=== PATIENT | male | born 1955 | race Two or more races ===

== ENCOUNTER 2019-05-29 02:47 | Emergency (ER) | payer OTHER ==
[~2019-05-29] VITALS: Ht 167.6 cm; Wt 74.8 kg
[~2019-05-29 02:47] MED LIST: ASPIR 8181 MG PO; HEP-FORTE1 CAP PO; LOVAZA1 G1 PO; NIASPAN500 MG PO; OSCAL ULTRA 6001 TA1 PO; PRA20 PO
[2019-05-29 02:57] VITALS: Ht 167.6 cm; Wt 74.8 kg
[2019-05-29 03:31] LABS: BASOPHIL % 0.4 % (0-2); PLATELET COUNT 243 x10^3mcL (130-400); RED CELL DISTRIBUTION WIDTH 13.2 % (11.5-14.5)
[2019-05-29 03:48] LABS: CALCIUM 8.7 mg/dL (8.5-10.1); CARBON DIOXIDE 27.3 mmol/L (21-32); CHLORIDE SERUM 100 mmol/L (98-107); CREATININE SERUM 1.1 mg/dL (0.7-1.3); GFR1 > 60 mL/min; GLUCOSE SERUM 120 mg/dL (74-106); POTASSIUM SERUM 4.1 mmol/L (3.5-5.1); SODIUM SERUM 136 mmol/L (136-145)
[2019-05-29 03:53] LABS: ALBUMIN 3.9 g/dL (3.4-5.0); ALKALINE PHOSPHATASE 125 U/L (46-116); ALT/SGPT 126 U/L (16-63); AST/SGOT 59 U/L (15-37); BILIRUBIN TOTAL 0.38 mg/dL (0.20-1.00); HDL CHOLESTEROL 56 mg/dL (40-60); TOTAL PROTEIN, SERUM 7.8 g/dL (6.4-8.2)
[2019-05-29 03:55] LABS: T3 TOTAL 1.12 ng/mL
[2019-05-29 04:47] LABS: CHOLESTEROL 232 mg/dL (<200); CHOLESTEROL/HDL RATIO 4.1; TRIGLYCERIDES 534 mg/dL (<150)
[2019-05-29 05:30] LABS: FREE THYROXINE INDEX 2.7 ug/dL (1.4-4.5); T4(THYROXINE) 7.5 ug/dL (4.7-13.3)
[2019-05-29 05:48] VITALS: BP 145/93
== END 2019-05-29 05:48 | disposition home or self-care (01) ==
LOC: ED 02:47
PROVIDERS: Specialist
DX: I10 Essential (primary) hypertension (principal); F41.9 Anxiety disorder, unspecified; E78.00 Pure hypercholesterolemia, unspecified
CPT/HCPCS: 83880; 84439; J2405; J3010; J3490; J7030; Q0092